=== PATIENT | male | born 1955 ===

== ENCOUNTER 2023-01-25 14:06 | Inpatient (IN) | payer SELFPAY ==
[~2023-01-25 14:06] MED LIST: Iopamidol-370 76% 500 ML MDV (1 ML CHARGE) ONE
[2023-01-25 15:05] LABS: #Monocytes 0.7 thou/uL (0.11-0.59); #Neutrophils 5.2 thou/uL (1.40-6.50); %Basophils 0.4 % (0.0-1.0); %Eosinophils 0.4 % (0.0-10.0); %Lymphocytes 17.1 % (21.0-51.0); %Monocytes 10.2 % (0.0-10.0); %Neutrophils 71.5 % (42.0-75.0); Hematocrit 39.7 % (42.0-52.0); Mean Corpuscular HGB CONC 32.7 g/dL (32.0-36.0); Mean Corpuscular Volume 94.5 fl (78.0-98.0); Mean Platelet Volume 10.6 fL (7.4-10.4); Platelet Count 220 10x3/uL (130-400); RBC Distribution Width 13.9 % (11.5-14.5); White Blood Cell (WBC) Count 7.3 10x3/uL (4.8-10.8)
[2023-01-25 15:24] LABS: INR-International Normal Ratio 3.6; PTT 44.1 sec (22.9-36.1); Prothrombin Time 37.2 sec (12.0-14.7)
[2023-01-25 15:29] LABS: ALT (SGPT) 10 U/L (8-55); AST (SGOT) 11 U/L (5-34); Albumin 3.7 g/dL (3.4-4.8); Alkaline Phosphatase 84 U/L (40-110); Anion Gap 12 mmol/L (10-20); BUN (Urea Nitrogen) 23 mg/dL (8.4-25.7); Bilirubin, Total 0.5 mg/dL (0.2-1.2); Calc. Creatinine Clearance 0 mL/min (70-130); Calcium 8.7 mg/dL (7.8-10.44); Carbon Dioxide 27 mmol/L (23-31); Chloride 98 mmol/L (98-107); Estimated GFR 48; Globulin 2.6 g/dL (2.4-3.5); Potassium 4.2 mmol/L (3.5-5.1); Protein, Total 6.3 g/dL (5.8-8.1); Sodium 133 mmol/L (136-145)
[2023-01-25 15:34] LABS: Troponin I Less than 0.010 ng/mL (< 0.028)
[2023-01-25 15:42] LABS: Glucose 481 mg/dL (80-115)
[2023-01-25] MEDS ORDERED: Labetalol HCl 100 MG/20 ML VIAL SLOW IVP PRN (17:35)
[2023-01-25] MEDS ORDERED: Glucagon 1 MG/ML KIT IM PRN (17:35)
[2023-01-25] MEDS ORDERED: Acetaminophen 325 MG TAB PO PRN (17:35)
[2023-01-25] MEDS ORDERED: Dextrose 5% in Water 1,000 ML IV PRN (17:35)
[2023-01-25] MEDS ORDERED: Ondansetron ODT 4 MG TAB PO PRN (17:35)
[2023-01-25] MEDS ORDERED: Dextrose 50% Abboject 50 ML SYRINGE SLOW IVP PRN (17:35)
[2023-01-25] MEDS ORDERED: HumaLOG 300 UNITS/3 ML VIAL SC PRN (17:35)
[2023-01-25] MEDS ORDERED: Ondansetron PF 4 MG/2 ML Vial IVP PRN (17:35)
[2023-01-25 18:37] LABS: Magnesium 1.8 mg/dL (1.6-2.6)
[2023-01-25] MEDS ORDERED: Warfarin Sodium 5 MG TAB PO SCH (19:00)
[2023-01-25 21:12] VITALS: BMI 26.5
[2023-01-25] MEDS: Sodium Chloride 0.9% 1,000 ML IV SCH (21:13)
[2023-01-25] MEDS: Atorvastatin Calcium 40 MG TAB PO SCH (21:13)
[2023-01-26 04:43] LABS: Hemoglobin A1c 10.7 % (4.0-6.0)
[2023-01-26 04:58] LABS: Cardiac Risk 4.8 (Less than 4.5)
[2023-01-26] MEDS: Sodium Chloride 0.9% 1,000 ML IV SCH (05:24)
[2023-01-26 05:25] LABS: INR-International Normal Ratio 2.8
[2023-01-26] MEDS: Aspirin 81 mg Enteric Coated Tablet PO SCH (08:45)
[2023-01-26] MEDS: HumaLOG 300 UNITS/3 ML VIAL SC PRN ×2 (13:58→18:08)
[2023-01-26] MEDS ORDERED: Warfarin Sodium 5 MG TAB PO SCH (17:00)
[2023-01-26] MEDS: Atorvastatin Calcium 40 MG TAB PO SCH (20:47)
[2023-01-27 04:09] LABS: #Eosinphils 0.1 thou/uL (0.0-0.7); #Monocytes 0.6 thou/uL (0.11-0.59); #Neutrophils 3.8 thou/uL (1.40-6.50); %Basophils 0.5 % (0.0-1.0); %Eosinophils 1.4 % (0.0-10.0); %Monocytes 10.3 % (0.0-10.0); %Neutrophils 61.5 % (42.0-75.0); Hematocrit 39.4 % (42.0-52.0); Hemoglobin 12.9 g/dL (14.0-18.0); Mean Corpuscular HGB CONC 32.7 g/dL (32.0-36.0); Mean Corpuscular Hemoglobin 30.4 pg (27.0-31.0); Mean Corpuscular Volume 92.9 fl (78.0-98.0); Mean Platelet Volume 10.4 fL (7.4-10.4); Platelet Count 193 10x3/uL (130-400); RBC Distribution Width 13.7 % (11.5-14.5); Red Blood Cell (RBC) Count 4.24 mill/uL (4.70-6.10); White Blood Cell (WBC) Count 6.2 10x3/uL (4.8-10.8)
[2023-01-27 04:21] LABS: INR-International Normal Ratio 1.8
[2023-01-27 04:31] LABS: Anion Gap 14 mmol/L (10-20); BUN (Urea Nitrogen) 18 mg/dL (8.4-25.7); Calc. Creatinine Clearance 81 mL/min (70-130); Calcium 8.4 mg/dL (7.8-10.44); Carbon Dioxide 24 mmol/L (23-31); Chloride 103 mmol/L (98-107); Estimated GFR 78; Glucose 171 mg/dL (80-115); Potassium 4.6 mmol/L (3.5-5.1); Sodium 136 mmol/L (136-145)
[2023-01-27] MEDS: Aspirin 81 mg Enteric Coated Tablet PO SCH (08:42)
[2023-01-27] MEDS: HumaLOG 300 UNITS/3 ML VIAL SC PRN (17:22)
[2023-01-27] MEDS: Glimepiride 4 MG TAB PO SCH (17:22)
[2023-01-27] MEDS: Atorvastatin Calcium 40 MG TAB PO SCH (20:07)
[2023-01-27] MEDS: Losartan 25 MG TAB PO SCH (20:07)
[2023-01-27] MEDS ORDERED: Insulin Glargine 30 UNITS/0.3 ML VIAL SC SCH (21:00)
[2023-01-28 05:06] LABS: #Eosinphils 0.1 thou/uL (0.0-0.7); #Monocytes 0.7 thou/uL (0.11-0.59); #Neutrophils 3.7 thou/uL (1.40-6.50); %Basophils 0.5 % (0.0-1.0); %Eosinophils 1.7 % (0.0-10.0); %Lymphocytes 25.1 % (21.0-51.0); %Monocytes 10.9 % (0.0-10.0); %Neutrophils 61.6 % (42.0-75.0); Hematocrit 41.1 % (42.0-52.0); Hemoglobin 13.5 g/dL (14.0-18.0); Mean Corpuscular HGB CONC 32.8 g/dL (32.0-36.0); Mean Corpuscular Hemoglobin 30.4 pg (27.0-31.0); Mean Corpuscular Volume 92.6 fl (78.0-98.0); Mean Platelet Volume 10.9 fL (7.4-10.4); Platelet Count 207 10x3/uL (130-400); RBC Distribution Width 13.5 % (11.5-14.5); Red Blood Cell (RBC) Count 4.44 mill/uL (4.70-6.10); White Blood Cell (WBC) Count 6.1 10x3/uL (4.8-10.8)
[2023-01-28 05:15] LABS: INR-International Normal Ratio 1.4; Prothrombin Time 17.8 sec (12.0-14.7)
[2023-01-28 05:30] LABS: Anion Gap 12 mmol/L (10-20); BUN (Urea Nitrogen) 19 mg/dL (8.4-25.7); Calc. Creatinine Clearance 77 mL/min (70-130); Calcium 8.6 mg/dL (7.8-10.44); Carbon Dioxide 24 mmol/L (23-31); Chloride 105 mmol/L (98-107); Estimated GFR 74; Glucose 142 mg/dL (80-115); Potassium 3.9 mmol/L (3.5-5.1); Sodium 137 mmol/L (136-145)
[2023-01-28] MEDS: Losartan 25 MG TAB PO SCH (08:14)
[2023-01-28] MEDS: Glimepiride 4 MG TAB PO SCH (08:14)
[2023-01-28] MEDS ORDERED: Pioglitazone HCl 15 MG TAB PO SCH (09:00)
[2023-01-28] MEDS ORDERED: Losartan 25 MG TAB PO SCH (09:00)
[2023-01-28] MEDS ORDERED: Hydrochlorothiazide 25 MG TAB PO SCH (09:00)
[2023-01-28] MEDS ORDERED: Citalopram 20 MG TAB PO SCH (09:15)
[2023-01-28] MEDS: HumaLOG 300 UNITS/3 ML VIAL SC PRN (12:36)
[2023-01-28 17:01] VITALS: BP 122/70; TEMP 97.5
[2023-01-29] MEDS ORDERED: Losartan 25 MG TAB PO SCH (09:00)
[2023-01-29] MEDS ORDERED: Citalopram 20 MG TAB PO SCH (09:00)
== END 2023-01-28 17:25 | disposition home or self-care (01) | DRG 65 ==
LOC: ERS 14:06 → 2SE 17:39 → OBSVTOIN 01-27 08:35
PROVIDERS: ADMIT Physician Assistant; ATTEND Family Medicine
DX: I63.411 Cerebral infarction due to embolism of right middle cerebral artery (principal); N17.9 Acute kidney failure, unspecified; I10 Essential (primary) hypertension; I48.0 Paroxysmal atrial fibrillation; E11.65 Type 2 diabetes mellitus with hyperglycemia; E78.00 Pure hypercholesterolemia, unspecified; F17.290 Nicotine dependence, other tobacco product, uncomplicated; M54.2 Cervicalgia; G89.29 Other chronic pain; G47.33 Obstructive sleep apnea (adult) (pediatric); Z98.890 Other specified postprocedural states; Z82.49 Family history of ischemic heart disease and other diseases of the circulatory system; Z80.9 Family history of malignant neoplasm, unspecified
CPT/HCPCS: 36415; 36416; 70450; 70480; 70496; 70551; 72141; 80048; 80053; 80061; 83036; 83735; 84443; 84484; 85025; 85610; 85730; 93306; 96360; G0378; J1815; J7050; Q9967